=== PATIENT | male | born 1990 | race Caucasian/White ===

== ENCOUNTER 2020-09-08 12:16 | Emergency (ER) | payer OTHER ==
[2020-09-08 12:27] VITALS: PULSE 84; RESP 18
[2020-09-08] MEDS ORDERED: IBUPROFEN 600 MG TAB PO STA (12:42)
--- NOTE | 2020-09-08 13:08 | XR ---
Result: Clinical History: Pain. Comparison: None available. Technique: 3 views of the right shoulder. Findings: The bone mineralization is appropriate for age. No acute fracture or dislocation is seen. The acromioclavicular and glenohumeral joints are preserve d . The humeral head is well-seated in the glenoid. The visualized lung is clear. Impression: Grossly unremarkable radiographs.
--- NOTE | 2020-09-08 13:27 | XR ---
RESULT: HISTORY: neck pain TECHNIQUE: 5 views of the cervical spine were obtained. COMPARISON: None. FINDINGS: There is no acute fracture or subluxation. There is mild to moderate disc height narrowing and facet arthropathy at C5-C6. There is suggestion of at least mild foramina narrowing at C5-C6. Otherwise the disc heights are grossly maintained elsewhere. The C1-C2 alignment is maintained as seen on the odon toid view. No significant prevertebral soft tissue abnormality. IMPRESSION: Mild to moderate C5-C6 spondylosis without acute osseous abnormality.
[2020-09-08] MEDS ORDERED: CYCLOBENZAPRINE 10MG STARTER 3 TAB BTL PO STA (13:43)
--- NOTE | 2020-09-08 13:44 | ED ---
Upper Extremity HPI - General Chief Complaint: Extremity Injury, Upper Stated Complaint: r shoulder injury, neck pain, [facility] Time Seen by Provider: 09/08/20 12:25 Source: patient Mode of arrival: ambulatory Limitations: no limitations - History of Present Illness Initial Comments: The patient is a 30-year-old previously healthy male who presents emergency room with reported right shoulder pain. Patient is right-hand dominant. 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 States that the machine had differentials on top of it and it was extremely difficult for him to maneuver the pieces back and forth. States that he spoke with his management several times but there is difficulty fixing it. Did not note until the end of his shift when he switched to a mother position that he was having pain in the right shoulder region which radiated up to his right neck. Patient denies any numbness, tingling or weakness in it. The area is tender to touch. He did not take any medications for his symptoms. States the pain is so severe that it is causing him to have a headache. No vision changes. Denies any significant trauma. No fevers or chills. No other alleviating, precipitating or modifying factors - Related Data Home Medications Medication Instructions Recorded Confirmed Multivitamins, Thera [Multivitamin 1 tab PO DAILY 09/08/20 09/08/20 (formulary)] Omeprazole 20 mg PO DAILY 09/08/20 09/08/20 Allergies Allergy/AdvReac Type Severity Reaction Status Date / Time amoxicillin Allergy Anaphylaxis Verified 09/08/20 13:31 Penicillins Allergy Anaphylaxis Verified 09/08/20 13:31 shellfish derived Allergy Rash/Hives Verified 09/08/20 13:31 Review of Systems ROS Statement: Those systems with pertinent positive or pertinent negative responses have been documented in the HPI. ROS Other: All systems not noted in ROS Statement are negative. Past Medical History Past Medical History: GERD/Reflux History of Any Multi-Drug Resistant Organisms: None Reported Additional Past Surgical History / Comment(s): oral surgery Past Psychological History: No Psychological Hx Reported Smoking Status: Never smoker Past Alcohol Use History: None Reported Past Drug Use History: None Reported General Exam Limitations: no limitations General appearance: alert, in no apparent distress Head exam: Present: atraumatic, normocephalic, normal inspection Eye exam: Present: normal appearance, PERRL, EOMI. Absent: scleral icterus, conjunctival injection, periorbital swelling ENT exam: Present: normal exam, mucous membranes moist Neck exam: Present: normal inspection. Absent: tenderness, meningismus, lymphadenopathy Respiratory exam: Present: normal lung sounds bilaterally. Absent: respiratory distress, wheezes, rales, rhonchi, stridor Cardiovascular Exam: Present: regular rate, normal rhythm, normal heart sounds. Absent: systolic murmur, diastolic murmur, rubs, gallop, clicks GI/Abdominal exam: Present: soft, normal bowel sounds. Absent: distended, tenderness, guarding, rebound, rigid Extremities exam: Present: normal inspection, full ROM, tenderness (tenderness of right deltoid and trapezius. 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 ), normal capillary refill. Absent: pedal edema, joint swelling, calf tenderness Back exam: Present: normal inspection Neurological exam: Present: alert, oriented X3, CN II-XII intact Psychiatric exam: Present: normal affect, normal mood Skin exam: Present: warm, dry, intact, normal color. Absent: rash Course Vital Signs 09/08/20 09/08/20 12:24 14:00 Temperature 98.5 F 98.3 F Pulse Rate 84 84 Respiratory 18 18 Rate Blood Pressure 150/100 138/88 O2 Sat by Pulse 97 97 Oximetry Medical Decision Making - Medical Decision Making Upon arrival of patient's placed into room 7. A thorough history and physical exam was performed. X-rays are performed of the patient's neck as well as his right shoulder. Patient was given a dose of Motrin for pain control. Patient remains neurovascularly intact. Results of the imaging and discussed the patient. A breathalyzer and drug panel is performed as is requested by the patient's work. Patient will be discharged home at this time with a Flexeril starter pack. He is given a work note to be off of work until Thursday. Follow up with his primary care doctor in 2-4 days. Return to the emergency department for any new or worsening symptoms. Patient was discharged home in stable condition - Lab Data Lab Results 09/08/20 Range/Units 13:22 Urine Opiates Screen Not Detected (NotDetected) Ur Oxycodone Screen Not Detected (NotDetected) Urine Methadone Screen Not Detected (NotDetected) Ur Propoxyphene Screen Not Detected (NotDetected) Ur Barbiturates Screen Not Detected (NotDetected) U Tricyclic Antidepress Not Detected (NotDetected) Ur Phencyclidine Scrn Not Detected (NotDetected) Ur Amphetamines Screen Not Detected (NotDetected) U Methamphetamines Scrn Not Detected (NotDetected) U Benzodiazepines Scrn Not Detected (NotDetected) Urine Cocaine Screen Not Detected (NotDetected) U Marijuana (THC) Screen Not Detected (NotDetected) Disposition Clinical Impression: Right shoulder pain Disposition: HOME SELF-CARE Condition: Stable Instructions (If sedation given, give patient instructions): Shoulder Pain (ED) Additional Instructions: Please follow up with your PCP in 1 week. Return to the ED for any new or worsening symptoms. Is patient prescribed a controlled substance at d/c from ED?: No Referrals: Belkis Vela MD [Primary Care Provider] - 1-2 days Time of Disposition: 13:44
[2020-09-08 14:05] VITALS: BP 138/88; TEMP 98.3
[2020-09-08 14:07] LABS: Amphetamine Screen,Urine Not Detected (NotDetected); Barbiturate Screen,Urine Not Detected (NotDetected); Benzodiazepines Screen,Urine Not Detected (NotDetected); Cocaine Screen,Urine Not Detected (NotDetected); Methadone Screen, Urine Not Detected (NotDetected); Opiate Screen,Urine Not Detected (NotDetected); Oxycodone Screen, Urine Not Detected (NotDetected); Phencyclidine Screen,Urine Not Detected (NotDetected); Tricyclic Antidepressant,Urine Not Detected (NotDetected); Urn Cannabinoid Scrn Not Detected (NotDetected)
== END 2020-09-08 14:05 | disposition home or self-care (01) ==
LOC: EC 12:16
DX: M25.511 Pain in right shoulder (principal); M54.2 Cervicalgia; R51.9 Headache, unspecified; K21.9 Gastro-esophageal reflux disease without esophagitis; Z79.899 Other long term (current) drug therapy; Z88.0 Allergy status to penicillin; Z91.013 Allergy to seafood
CPT/HCPCS: 72050; 80306; 82075; 99284

== ENCOUNTER → 2021-05-15 | Outpatient (CLI) | payer OTHER ==
--- NOTE | 2021-05-15 12:36 | XR ---
EXAMINATION TYPE: XR hand complete RT DATE OF EXAM: 05/15/2021 COMPARISON: NONE HISTORY: Pain TECHNIQUE: Three views are submitted. FINDINGS: The osseous structures are intact. The joint spaces are preserved and there is no acute fracture or dislocation. IMPRESSION: 1. No definite acute fracture or dislocation if symptoms persist, follow-up study in 7 to 10 days wo uld be suggested
--- NOTE | 2021-05-15 12:52 | XR ---
EXAMINATION TYPE: XR wrist complete RT DATE OF EXAM: 05/15/2021 COMPARISON: NONE HISTORY: Pain TECHNIQUE: Four views submitted. FINDINGS: The osseous structures are intact. The joint spaces are preserved and there is no acute fracture or dislocation. There is a 6 small ossific density along the volar surface of the wrist anterior to the cuboid bone. IMPRESSION: 1. Small ossific density along the volar wrist 2 small to characterize. Small chip or avulsion fractu re not entirely excluded recommend follow-up with CT of the wrist.
== END | disposition home or self-care (01) ==
LOC: RADXRMAIN 11:46
PROVIDERS: ATTEND Emergency Medicine
DX: M25.531 Pain in right wrist (principal)

== ENCOUNTER → 2021-05-25 | Outpatient (CLI) | payer OTHER ==
--- NOTE | 2021-05-27 07:07 | MR ---
MR right wrist without contrast HISTORY: S63.501D Right wrist sprain Multiplanar multisequence imaging obtained through the right wrist, correlation to plain film 021 The extensor carpi ulnaris tendon shows some subluxation anteriorly, axial image #1 series 1001, ther e is some local inflammatory change, findings consistent with subacute stripping injury at its palmar attachment with some local tendinosis. There is minimal fluid present at the radioulnar joint. Small questionable ossific densities seen on plain film not well seen on MRI, difficult to exclude small l oose bodies or synovial calcifications. Bone marrow signal is maintained. Muscle signal is within nor mal limits. Flexor and extensor tendons are intact. Triangular fibrocartilage thought to be intact, s capholunate, lunotriquetral ligaments intact. IMPRESSION: Findings consistent with extensor carpi ulnaris stripping injury as described.
== END | disposition home or self-care (01) ==
LOC: RADMRIMAIN 09:08
PROVIDERS: ATTEND Emergency Medicine
DX: S69.81XA Other specified injuries of right wrist, hand and finger(s), initial encounter (principal); X58.XXXA Exposure to other specified factors, initial encounter